=== PATIENT | male | born 1930 | race Caucasian/White ===

== ENCOUNTER 2019-01-23 11:53 | Inpatient (IN) | payer BC, MEDICARE, OTHER ==
[~2019-01-23] VITALS: Ht 182.9 cm; Wt 82.7 kg
--- NOTE | 2019-01-23 12:00 | NUR ---
PT BIB [facility] FROM HOME AFTER BECOMING DIZZY AND NAUSEOUS SUDDENLY AT HOME. NO LOC, VOMITTING, FALL. IV IN PLACE UPON ARRIVAL, 4 ZOFRAN GIVEN BY KIARRA. PT STATES NAUSEA HAS SUBSIDED BUT STILL FEELING LIGHTHEADED. NEURO INTACT. VSS, HTN, HASNT TAKEN BP MEDS TODAY. CONNECTED TO ALL MONITORING. CALL LIGHT WITHIN REACH. AWAITING ORDERS AT THIS TIME.
--- NOTE | 2019-01-23 12:18 | NUR ---
MD TO BEDSIDE FOR ASSESSMENT
[2019-01-23] MEDS ORDERED: MECLIZINE CHEWABLE 25 MG TAB ONE (12:30)
[2019-01-23] MEDS ORDERED: MECLIZINE CHEWABLE 25 MG TAB PO ONE (12:30)
[2019-01-23 12:39] LABS: BASOPHILS # (AUTO) 0.02 x10^3/uL (0-0.1); BASOPHILS % (AUTO) 0 % (0-1); EOSINOPHILS # (AUTO) 0.04 x10^3/uL (0-0.4); EOSINOPHILS % (AUTO) 0 % (1-7); LYMPHOCYTES # (AUTO) 0.73 x10^3/uL (1-3.4); LYMPHOCYTES % (AUTO) 7 % (22-44); MD NO; MEAN CORPUSCULAR HEMOGLOBIN 31.7 pg (27.5-34.5); MEAN CORPUSCULAR HGB CONC 33.9 g/dL (33.2-36.2); MEAN CORPUSCULAR VOLUME 93.6 fL (81-97); MEAN PLATELET VOLUME 7.6 fL (7.4-10.4); MONOCYTES # (AUTO) 0.46 x10^3/uL (0.2-0.8); MONOCYTES % (AUTO) 5 % (2-9); NEUTROPHILS # (AUTO) 8.57 x10^3/uL (1.8-6.8); NEUTROPHILS % (AUTO) 87 % (42-75); PLATELET COUNT 207 x10^3/uL (130-400); RED BLOOD COUNT 5.03 x10^6/uL (4.38-5.82); RED CELL DISTRIBUTION WIDTH 14.7 % (9.4-14.8)
--- NOTE | 2019-01-23 12:46 | NUR ---
PT MEDICATED PER MAR. AT BEDSIDE. VSS. CALL LIGHT WITHIN REACH. AWAITING RESULTS AT THIS TIME
[2019-01-23 12:50] LABS: INTERNATIONAL NORMALIZED RATIO 1.01 (0.93-1.1); PROTHROMBIN TIME 10.6 Seconds (9.6-11.5)
[2019-01-23 12:52] LABS: ALANINE AMINOTRANSFERASE 19 U/L (12-78); ALBUMIN 3.5 g/dL (3.4-5.0); ANION GAP 7 mmol/L (5-15); CHLORIDE 106 mmol/L (98-107); CREATININE 0.99 mg/dL (0.7-1.3)
[2019-01-23 12:54] LABS: ALKALINE PHOSPHATASE 102 U/L (45-117); BILIRUBIN,TOTAL 1.5 mg/dL (0.2-1.0); TOTAL PROTEIN 6.7 g/dL (6.4-8.2)
--- NOTE | 2019-01-23 13:51 | NUR ---
PT AMB IN HALLS BY [employer], PASSED ROAD TEST. AWAITING RECHECK AND DISPO AT THIS TIME Addendum: 01/23/19 at 1407 by CATE PT DID NOT PASS ROAD TEST
--- NOTE | 2019-01-23 14:08 | NUR ---
PT RESTING IN BED WITH AT BEDSIDE. VSS, NO COMPLAINTS AT THSI TIME. AWAITING ADMIT ORDER
[2019-01-23] MEDS ORDERED: AMLODIPINE (14:10)
[2019-01-23] MEDS ORDERED: LISI-167 PO (14:10)
--- NOTE | 2019-01-23 15:30 | NUR ---
REPORT GIVEN TO AMRIK RN, PT READY FOR TRANSPORT
--- NOTE | 2019-01-23 15:52 | NUR ---
Note juan in EDM - 01/23/19 at 1555 by JOHN TONY RN: ADMITTING MD HERNÁNDEZ AT BEDSIDE FOR EVAL. PT AO X 4. SKIN PWD. RESP EVEN AND EQAUL. PT AWARE WE ARE WAITING FOR ADMISSION. CALL LIGHT WITHIN REACH.
[2019-01-23 16:07] VITALS: BP 149/76
[2019-01-23 16:39] VITALS: BP 161/73
[2019-01-23 16:42] VITALS: BP 166/76
[2019-01-23 16:45] VITALS: BP 156/71
[2019-01-23] MEDS ORDERED: DOCUSATE 100 MG CAPSULE PO PRN (17:00)
[2019-01-23] MEDS ORDERED: NITROGLYCERIN 0.4 MG BOTTLE (25 TABS) SL PRN (17:00)
[2019-01-23] MEDS ORDERED: GUAIFENESIN/COD200MG-20MG/10ML LIQUID PO PRN (17:00)
[2019-01-23] MEDS ORDERED: LABETALOL 5 MG/ML SYRINGE IVPush PRN (17:00)
[2019-01-23] MEDS ORDERED: ONDANSETRON 2MG/ML, 2ML IVPush PRN (17:00)
[2019-01-23] MEDS: ENOXAPARIN 40 MG/0.4 ML SQ SCH (17:47)
[2019-01-23] MEDS: SODIUM CHLORIDE 0.9% 1,000 ML IV SCH (17:47)
[2019-01-23 18:03] LABS: TROPONIN I < 0.015 ng/mL (0.000-0.045)
[2019-01-23 19:27] VITALS: BP 121/54
[2019-01-23 21:35] LABS: TROPONIN I < 0.015 ng/mL (0.000-0.045)
[2019-01-24 00:14] VITALS: BP 135/77
[2019-01-24 00:19] LABS: TROPONIN I < 0.015 ng/mL (0.000-0.045)
[2019-01-24] MEDS: SODIUM CHLORIDE 0.9% 1,000 ML IV SCH (01:05)
[2019-01-24 06:12] LABS: BASOPHILS # (AUTO) 0.03 x10^3/uL (0-0.1); BASOPHILS % (AUTO) 0 % (0-1); EOSINOPHILS # (AUTO) 0.19 x10^3/uL (0-0.4); EOSINOPHILS % (AUTO) 3 % (1-7); LYMPHOCYTES # (AUTO) 1.55 x10^3/uL (1-3.4); LYMPHOCYTES % (AUTO) 21 % (22-44); MD NO; MEAN CORPUSCULAR HEMOGLOBIN 31.6 pg (27.5-34.5); MEAN CORPUSCULAR HGB CONC 33.8 g/dL (33.2-36.2); MEAN CORPUSCULAR VOLUME 93.7 fL (81-97); MEAN PLATELET VOLUME 7.6 fL (7.4-10.4); MONOCYTES # (AUTO) 0.57 x10^3/uL (0.2-0.8); MONOCYTES % (AUTO) 8 % (2-9); NEUTROPHILS # (AUTO) 5.01 x10^3/uL (1.8-6.8); NEUTROPHILS % (AUTO) 68 % (42-75); PLATELET COUNT 198 x10^3/uL (130-400); RED BLOOD COUNT 4.63 x10^6/uL (4.38-5.82)
[2019-01-24 06:14] LABS: ANION GAP 4 mmol/L (5-15); CALCIUM 8.3 mg/dL (8.5-10.1); CHLORIDE 114 mmol/L (98-107)
[2019-01-24 06:26] LABS: CHOL/HDL RATIO 3.5; CHOLESTEROL, TOTAL 155 mg/dL (140-239); HDL CHOL % 28 % (26-37); HDL CHOLESTEROL (DIRECT) 44 mg/dL (40-60); LDL CHOLESTEROL,CALCULATED 91 mg/dL (54-169); LDL/HDL RATIO 2.1 (0.5-3.0); TRIGLYCERIDES 98 mg/dL (50-200); VLDL CHOLESTEROL 20 mg/dL (0-25)
[2019-01-24 06:54] VITALS: BP 138/79
[2019-01-24 07:56] VITALS: BP 137/67
[2019-01-24] MEDS: LISINOPRIL 10 MG TABLET PO SCH (08:15)
[2019-01-24 14:18] VITALS: BP 117/65
[2019-01-24] MEDS: ENOXAPARIN 40 MG/0.4 ML SQ SCH (17:06)
[2019-01-24 20:00] VITALS: BP 142/81
[2019-01-25 01:30] VITALS: BP 145/77
[2019-01-25 07:23] VITALS: BP 157/74
[2019-01-25] MEDS: LISINOPRIL 10 MG TABLET PO SCH (08:51)
[2019-01-25 13:57] VITALS: BP 154/74
[2019-01-25] MEDS: ENOXAPARIN 40 MG/0.4 ML SQ SCH (18:13)
[2019-01-25 18:55] VITALS: BP 144/72
[2019-01-25] MEDS: ACETAMINOPHEN 325 MG TABLET PO PRN (20:31)
[2019-01-26 02:57] VITALS: BP 161/76
[2019-01-26 05:30] LABS: ALANINE AMINOTRANSFERASE 17 U/L (12-78); ALBUMIN 3.3 g/dL (3.4-5.0); ANION GAP 3 mmol/L (5-15); CALCIUM 8.8 mg/dL (8.5-10.1); CHLORIDE 113 mmol/L (98-107)
[2019-01-26 05:32] LABS: ALKALINE PHOSPHATASE 92 U/L (45-117); BILIRUBIN,TOTAL 1.3 mg/dL (0.2-1.0); TOTAL PROTEIN 6.3 g/dL (6.4-8.2)
[2019-01-26] MEDS: ACETAMINOPHEN 325 MG TABLET PO PRN (06:44)
[2019-01-26 07:28] VITALS: BP 158/76
[2019-01-26] MEDS: LISINOPRIL 10 MG TABLET PO SCH (09:02)
== END 2019-01-26 13:21 | disposition home or self-care (01) | DRG 74 ==
LOC: ED 14:25 → 4EST 14:32 → ED 15:50 → DCLOUNGE 01-26 13:11
PROVIDERS: ADMIT Hospitalist; ATTEND Hospitalist
DX: G90.8 Other disorders of autonomic nervous system (principal); I10 Essential (primary) hypertension; H55.00 Unspecified nystagmus; I44.1 Atrioventricular block, second degree; Z87.891 Personal history of nicotine dependence; Z90.49 Acquired absence of other specified parts of digestive tract
CPT/HCPCS: 36415; 70250; 70551; 71045; 80048; 80053; 80061; 82607; 83735; 84100; 84443; 84484; 85025; 85610; 85730; 86592; 87806; 93005; 93306; 99285; G0378; J1650; G0475; J7030